=== PATIENT | female | born 1995 | race American Indian/Alaskan Native ===

== ENCOUNTER 2020-11-25 15:48 | Emergency (ER) | payer MEDICAID ==
[2020-11-25 17:41] VITALS: BP 128/65
--- NOTE | 2020-11-25 17:56 | Emergency Department Report ---
Chief Complaint: Dyspnea/Respdistress Stated Complaint: LOST OF SMELL AND TASTE - HPI History of Present Illness: 25-year-old -[place] female presents to the emergency room for 1 day history of loss of taste and smell with nausea and sweats. Patient is unvaccinated for Covid. She is looking to get Covid testing. Patient states that she has a 6-month-old at home and is concerned. Patient denies any fever chills no vomiting diarrhea or abdominal pain. - Exam Vital Signs: Vital Signs 11/25/20 11/25/20 17:39 17:41 Temperature 98.7 F Pulse Rate 66 Respiratory 18 Rate Blood Pressure 128/65 [Right] O2 Sat by Pulse 99 Oximetry Physical Exam: General: Awake, appropriately interactive, no acute distress. Neck: Supple. Full range of motion intact. Cardiovascular: Normal peripheral perfusion. Pulmonary: No respiratory distress. Patient is speaking normally without use of accessory muscles. Skin: No apparent rashes or lesions. Neurological: No facial asymmetry. Speech is clear. Follows commands. Patient is alert and oriented. Musculoskeletal: Full range of motion, no crepitus. No tenderness to palpate nonerythematous no edema test appreciated. Able to bear weight and ambulate without difficulty. Distal neurovascular and motor/sensory function is intact. Psych: Cooperative. Appropriate mood and affect. MSE screening note: Focused history and physical exam performed. Due to findings the following was ordered: 25-year-old -[place] female presents to the emergency room for 1 day history of loss of taste and smell with nausea and sweats. Patient is unvaccinated for Covid. She is looking to get Covid testing. Patient states that she has a 6-month-old at home and is concerned. Patient denies any fever chills no vomiting diarrhea or abdominal pain. Recommend outpatient Covid testing and quarantine. Increase your fluid intake advance your diet as tolerated. Tylenol or ibuprofen for any pain. ED Disposition for MSE Clinical Impression: Infection due to COVID-19 virus variant of concern Disposition: HOME / SELF CARE / HOMELESS Is pt being admited?: No Does the pt Need Aspirin: No Condition: Stable Instructions: COVID-19: How to Protect Yourself and Others - [facility], Prevent the Spread of COVID-19 if You Are Sick - [facility] Additional Instructions: Your symptoms appear most consistent with a nonspecific viral syndrome. How ever, given this current pandemic, COVID-19 is in the differential of possibilities. I do recommend outpatient Covid 19 testing. In the meantime, isolate/quarantine yourself and stay away from anyone who is elderly, immunocompromised or chronically ill. You can use ibuprofen every 6-8 hours and Tylenol every 4-8 hours, using the dosing on the back of the bottle, as needed for any fever or body aches. Return to the emergency department with any worsening of your symptoms, development of chest pain or shortness of breath, or with any acute distress. Regen
== END 2020-11-25 20:00 | disposition home or self-care (01) ==
LOC: ED 15:48
DX: R11.0 Nausea (principal); R61 Generalized hyperhidrosis; Z20.822 Contact with and (suspected) exposure to COVID-19
CPT/HCPCS: 99282

== ENCOUNTER 2021-11-30 16:25 | Emergency (ER) | payer MEDICAID ==
[2021-11-30] MEDS ORDERED: oxyCODONE /ACETAMINOPHEN 5-325MG TAB PO ONE (22:51)
--- NOTE | 2021-11-30 23:45 | Emergency Department Report ---
ED ENT HPI - General Chief complaint: Dental/Oral Stated complaint: TOOTH/PAIN Time Seen by Provider: 11/30/21 22:18 Source: patient Mode of arrival: Ambulatory Limitations: No Limitations - History of Present Illness MD complaint: tooth pain -: Gradual Location: tooth # 1 - Tenderness to the left upper molar region Severity: mild, moderate Quality: aching, dull Consistency: constant - Related Data Previous Rx's Medication Instructions Recorded Last Taken Type Amoxicillin [Amoxicillin TAB] 875 mg PO BID #20 tablet 11/30/21 Unknown Rx Chlorhexidine Mouthwash [Peridex] 15 ml MM BID #1 bottle 11/30/21 Unknown Rx Ketorolac [Toradol] 10 mg PO Q6H PRN #15 tablet 11/30/21 Unknown Rx Lidocaine Viscous 2% 5 ml MM Q3H PRN #120 udc 11/30/21 Unknown Rx Allergies Allergy/AdvReac Type Severity Reaction Status Date / Time No Known Allergies Allergy Unverified 11/25/20 17:37 ED Dental HPI - General Chief complaint: Dental/Oral Stated complaint: TOOTH/PAIN Time Seen by Provider: 11/30/21 22:18 Source: patient Mode of arrival: Ambulatory Limitations: No Limitations - Related Data Previous Rx's Medication Instructions Recorded Last Taken Type Amoxicillin [Amoxicillin TAB] 875 mg PO BID #20 tablet 11/30/21 Unknown Rx Chlorhexidine Mouthwash [Peridex] 15 ml MM BID #1 bottle 11/30/21 Unknown Rx Ketorolac [Toradol] 10 mg PO Q6H PRN #15 tablet 11/30/21 Unknown Rx Lidocaine Viscous 2% 5 ml MM Q3H PRN #120 udc 11/30/21 Unknown Rx Allergies Allergy/AdvReac Type Severity Reaction Status Date / Time No Known Allergies Allergy Unverified 11/25/20 17:37 ED Review of Systems ROS: Stated complaint: TOOTH/PAIN Other details as noted in HPI Comment: All other systems reviewed and negative ED Past Medical Hx - Past Medical History Previous Medical History?: No - Surgical History Past Surgical History?: Yes Additional Surgical History: - Medications Home Medications: Home Medications Medication Instructions Recorded Confirmed Last Taken Type Amoxicillin [Amoxicillin TAB] 875 mg PO BID #20 tablet 11/30/21 Unknown Rx Chlorhexidine Mouthwash [Peridex] 15 ml MM BID #1 bottle 11/30/21 Unknown Rx Ketorolac [Toradol] 10 mg PO Q6H PRN #15 tablet 11/30/21 Unknown Rx Lidocaine Viscous 2% 5 ml MM Q3H PRN #120 udc 11/30/21 Unknown Rx ED Physical Exam - General Limitations: No Limitations General appearance: alert, in no apparent distress - Head Head exam: Present: atraumatic, normocephalic - Eye Eye exam: Present: normal appearance, PERRL Pupils: Present: normal accommodation - ENT ENT exam: Present: normal exam, normal orophraynx, mucous membranes moist, TM's normal bilaterally, other (Dental caries avulsion to the left upper molar with adjacent gingival erythema with some mild swelling. No discharge) - Neck Neck exam: Present: normal inspection, full ROM - Respiratory Respiratory exam: Present: normal lung sounds bilaterally. Absent: respiratory distress, wheezes, rales, rhonchi - Cardiovascular Cardiovascular Exam: Present: regular rate, normal rhythm. Absent: tachycardia, systolic murmur, diastolic murmur, rubs, gallop - GI/Abdominal GI/Abdominal exam: Present: soft, normal bowel sounds. Absent: tenderness, guarding - Extremities Exam Extremities exam: Present: normal inspection, normal capillary refill - Back Exam Back exam: Present: normal inspection. Absent: CVA tenderness (R), CVA tenderness (L) - Neurological Exam Neurological exam: Present: alert, oriented X3, CN II-XII intact, normal gait - Psychiatric Psychiatric exam: Present: normal affect, normal mood. Absent: flat affect, manic - Skin Skin exam: Present: warm, dry, intact, normal color. Absent: rash ED Course Vital Signs 11/30/21 19:18 Temperature 98.3 F Pulse Rate 81 Respiratory 16 Rate Blood Pressure 117/72 [Right] O2 Sat by Pulse 97 Oximetry Critical care attestation.: If time is entered above; I have spent that time in minutes in the direct care of this critically ill patient, excluding procedure time. ED Disposition Clinical Impression: Dentalgia Disposition: HOME / SELF CARE / HOMELESS Is pt being admited?: No Does the pt Need Aspirin: No Condition: Stable Instructions: Acute Pain, Adult Prescriptions: Amoxicillin [Amoxicillin TAB] 875 mg PO BID #20 tablet Lidocaine Viscous 2% 5 ml MM Q3H PRN #120 udc PRN Reason: Pain, Moderate (4-6) Chlorhexidine Mouthwash [Peridex] 15 ml MM BID #1 bottle Ketorolac [Toradol] 10 mg PO Q6H PRN #15 tablet PRN Reason: Pain Referrals: [facility] [Outside] - 3-5 Days
[2021-12-01 01:13] VITALS: BP 127/83
== END 2021-12-01 00:27 | disposition home or self-care (01) ==
LOC: ED 16:25
DX: K08.89 Other specified disorders of teeth and supporting structures (principal)
CPT/HCPCS: 99282